=== PATIENT | female | born 1960 | race Caucasian/White ===

== ENCOUNTER 2016-12-24 17:19 | Emergency (ER) | payer BC ==
[~2016-12-24] VITALS: Ht 154.9 cm; Wt 81.6 kg
[~2016-12-24 17:19] MED LIST: ASPIRIN PO; BACTRIM DS TABL1 TA1 PO; CELEXA PO; CELEXA20 MG PO; CIPRO PO; CIPRO XR 500 M500 MG PO; DARVOCET-N 1001 TA1 PO; KEFLEX500 MG PO; LORTAB 5/500 TA1 TA2 PO; METRONIDAZOLE PO; NO MEDICATIONS; PREDNISONE PO; PYRIDIUM PO; PYRIDIUM100 MG PO; TRAMADOL HCL50 M1 PO; WATER PILL PO; ZOFRAN ODT4 MG PO
== END 2016-12-24 18:28 | disposition home or self-care (01) ==
LOC: SED 17:19
DX: T23.102A Burn of first degree of left hand, unspecified site, initial encounter (principal); Z90.49 Acquired absence of other specified parts of digestive tract; Z90.710 Acquired absence of both cervix and uterus; Z88.8 Allergy status to other drugs, medicaments and biological substances; Z79.899 Other long term (current) drug therapy
CPT/HCPCS: 16000; 99283